=== PATIENT | female | born 1945 | race Caucasian/White ===

== ENCOUNTER → 2018-05-20 | Outpatient (CLI) | payer MEDICARE, BC ==
[~2018-05-20] MED LIST: ALEVE220 M1 PO; ASPIRIN81 M2 PO; CALCIUM 500 +1 EAC4 PO; CHLOR-TABLET4 MG PO; COZAAR 25 MG TA25 M2 PO; FISH OIL SOFTG1 EACH PO; KRILL OIL 1,001 EAC1 PO; LIDODERM 5%1 PATC1 TRANSDERM; LOVASTAT40 PO; MULTIVITAMINS; NEXIUM 40 MG CA40 M1 PO; NORCO 5-325 TA1 EACH PO; OSTEO BI-FLEX1 EAC1 PO; SINGULAIR 10 MG10 M1 PO; TRAMADOL 50 MG50 MG PO; VITAMIN B12; VITAMIN D3400 UNI1 PO; ZESTRIL20 MG PO
== END ==
LOC: M.RAD 08:16
DX: E28.39 Other primary ovarian failure (principal); N95.1 Menopausal and female climacteric states; I10 Essential (primary) hypertension; K21.9 Gastro-esophageal reflux disease without esophagitis; M85.80 Other specified disorders of bone density and structure, unspecified site; J45.909 Unspecified asthma, uncomplicated; Z92.241 Personal history of systemic steroid therapy

== ENCOUNTER → 2018-06-13 | Outpatient (CLI) | payer MEDICARE, OTHER | LOC: M.ULTRA 09:42 | DX: M25.562 Pain in left knee (principal); M79.89 Other specified soft tissue disorders ==

== ENCOUNTER → 2021-03-14 | Outpatient (CLI) | payer MEDICARE, OTHER | LOC: M.ULTRA 15:31 | PROVIDERS: ATTEND Family Medicine | DX: M79.604 Pain in right leg (principal) ==